=== PATIENT | female | born 1955 | race Caucasian/White ===

== ENCOUNTER → 2019-11-13 15:08 | Outpatient (CLI) | payer OTHER, SELFPAY ==
--- NOTE | ~2019-11-13 | MR_ITS ---
EXAMINATION: MR thoracic spine wo con EXAM DATE: 11/13/2019 16:19 INDICATION: Chronic upper back pain. TECHNIQUE: Multi-sequential, multiplanar MR images of the thoracic spine were obtained without contra st. Sagittal T1, T2, T2 fat saturation, axial T2 weighted images reviewed. There is no prior study for comparison. FINDINGS: There is mild to moderate diffuse mid and lower thoracic disc disease, with small disc bulg es and protrusions, small endplate osteophytes, small Schmorl's nodes. Midthoracic kyphosis. There ar e no suspicious marrow signal abnormalities. The spinal cord signal intensity and intrinsic morpholog y is normal. There is mild to moderate mid thoracic facet arthropathy, otherwise mild thoracic facet arthropathy. Central canal, neural foramen are patent. The vertebral bodies are aligned in the AP dim ension. Paraspinal soft tissue is unremarkable. There is moderate sliding gastroesophageal hiatal hernia. IMPRESSION: 1. Moderate-sized gastroesophageal hiatal hernia. 2. Mild to moderate thoracic spondylosis without stenosis. Reviewed, dictated and finalized at location A.
== END ==
PROVIDERS: Visit Provider Nurse Practitioner Family
DX: M54.6 Pain in thoracic spine (principal); K44.9 Diaphragmatic hernia without obstruction or gangrene; M47.814 Spondylosis without myelopathy or radiculopathy, thoracic region
CPT/HCPCS: 72146

== ENCOUNTER 2022-02-10 17:54 | Inpatient (IN) | payer MEDICARE, SELFPAY ==
[2022-02-10] VITALS (31 sets, daily range): BP systolic 111–198; BP diastolic 65–92; PULSE 101–120; RESP 17–30; TEMP 36.7–36.9; O2SAT 99–100; BMI 38.7
--- NOTE | ~2022-02-10 | CT_ITS ---
EXAMINATION: CT abdomen pelvis w con DATE: 02/10/2022 20:16 INDICATION: Gastrointestinal bleed TECHNIQUE: Computed tomography (CT) of the abdomen and pelvis was performed with 100 mL Omnipaque-350 intravenous contrast. Automated exposure control and iterative reconstruction technique were employe d. The dose-length product was 1431.94 mGy-cm. COMPARISON: None FINDINGS: Lung bases are clear. Large sliding-type hiatal hernia. Visualized inferior heart is normal. No peric ardial or pleural effusion. Bilateral breast implants. Liver, gallbladder, spleen, pancreas and bilat eral adrenal glands are normal. Small region of cortical scarring at the lower pole of the right kidn ey. Bilateral renal parapelvic cysts. Diffuse colonic wall thickening which at the proximal colon dem onstrates fat attenuation likely related to body habitus but with more edematous appearance in the mi d to distal colon which is more concerning for colitis. Small bowel and appendix are normal. Bladder, anteverted uterus and right adnexa are normal. 1.6 similar left ovarian cyst/follicle. No abscess or free intraperitoneal gas or fluid. No pathologically enlarged abdominal or pelvic lymphadenopathy. M oderate lower thoracic spondylosis with chronic appearing mild anterior wedging at T10 and T11. IMPRESSION: 1. Colitis which could be infectious, inflammatory or less likely ischemic in etiology. 2. Large sliding-type hiatal hernia. Reviewed, dictated and finalized at location A. IMPRESSION: 1. Colitis which could be infectious, inflammatory or less likely ischemic in e tiology. 2. Large sliding-type hiatal hernia.
[2022-02-10 18:27] LABS: Basophils Absolute Auto 0.1 K/mm3 (0.0-0.1); Basophils Percent Auto 0.5 % (0.2-1.2); Hematocrit 39.3 % (37.0-47.0); Hemoglobin 12.9 g/dL (12.0-15.0); Immature Granulocyte Absolute 0.03 K/mm3 (0.00-0.031); Immature Granulocyte Percent A 0.3 % (0-0.5); Lymphocytes Absolute Auto 1.33 K/mm3 (0.9-3.2); Lymphocytes Percent Auto 14.1 % (18.3-44.2); Mean Corpuscular HGB Conc 32.8 g/dl (32-36); Mean Corpuscular Hemoglobin 30.1 pg (26-34); Mean Corpuscular Volume 91.8 fl (80-100); Mean Platelet Volume 9.7 fl (7.4-10.4); Monocytes Absolute Auto 0.5 K/mm3 (0.1-0.6); Monocytes Percent Auto 4.8 % (2.6-8.5); Neutrophils Absolute Auto 7.6 K/mm3 (1.3-6.7); Neutrophils Percent Auto 80.3 % (45.5-73.1); Platelet Count Result 272 k/mm3 (150-375); Red Blood Count 4.28 M/mm3 (4.2-5.4); White Blood Count 9.4 K/mm3 (4.5-10.0)
[2022-02-10 18:38] LABS: INR 1.1; Prothrombin Time 13.3 Seconds (11.1-14.7)
[2022-02-10 18:39] LABS: Alanine Aminotransferase 24 U/L (6-35); Albumin Level 4.3 g/dL (3.5-5.1); Alkaline Phosphatase 70 U/L (38-126); Anion Gap 11 mmol/L (8-16); Aspartate Amino Transferase 23 U/L (14-36); Bilirubin,Total 0.7 mg/dL (0.2-1.3); Blood Urea Nitrogen 47 mg/dL (7-17); Calcium 8.8 mg/dL (8.4-10.2); Carbon Dioxide 16 mmol/L (22-30); Chloride 110 mmol/L (98-107); Estimated CRCL calculation 103 ml/min; Estimated Glomerular Filt Rate > 60; Glucose 219 mg/dL (65-110); Potassium 4.2 mmol/L (3.4-5.0); Sodium 137 mmol/L (137-145)
--- NOTE | 2022-02-10 19:15 | PC.NURSE ---
Report received from BOUCHRA Roach. Assumed care of patient at this time.
--- NOTE | 2022-02-10 19:42 | ED.GENADULT ---
HPI - General Adult General Chief complaint: GI Bleed Stated complaint: Multiple Complaints, Black Stools Time Seen by Provider: 02/10/22 19:03 History of Present Illness HPI narrative: This is a 66-year-old female presenting to ED with 1 day of diarrhea and black stools. Patient said that she had [place] food for dinner last night. After that she was not feeling well throughout the entire night with diffuse abdominal pain, that is nonradiating, 3/10 in intensity constant. She has never experienced pain like this before there were no exacerbating or alleviating factors. It is associated with multiple episodes of dark tarry stools that are foul smelling. She also describes some nausea and chills. The patient is tachypneic at rest and has dyspnea with exertion. She denies vomiting, chest pain, urinary symptoms, use of blood thinners, use of NSAIDs or history of GI bleed Related Data Home Medications Medication Instructions Recorded Confirmed aspirin 81 mg tablet,delayed 81 mg PO DAILY 10/02/19 10/09/21 release (Adult Aspirin Regimen) esomeprazole magnesium 20 mg 20 mg PO DAILY 10/05/19 10/09/21 capsule,delayed release (Nexium) Allergies Allergy/AdvReac Type Severity Reaction Status Date / Time diclofenac Allergy Severe Anaphylactic Verified 02/10/22 19:42 Shock Review of Systems Review of Systems: CONSTITUTIONAL: Denies night sweats. EYES: No eye pain ENT: Denies rhinorrhea CARDIOVASCULAR: Denies palpitations RESPIRATORY: Denies hemoptysis GASTROINTESTINAL: admits melena GENITOURINARY: Denies hematuria. SKIN: Denies rash MUSCULOSKELETAL: Denies myalgia. NEUROLOGIC: Denies weakness. PSYCHIATRIC: Denies delusions [facility] Past Medical History Medical History (Updated 02/10/22 @ 22:23 by Behzad Shah MD) Chronic back pain Depression Surgical History Surgical History (Updated 02/10/22 @ 19:47 by Behzad Shah MD) H/O section History of bunionectomy Family History Family History Mother Cerebrovascular accident Family history of diabetes mellitus in first degree relative, Onset Age: 79 Sibling Family history of diabetes mellitus in first degree relative Family history of renal failure Patient's brother is Patient's sister is in good health Father Acute myocardial infarction, Onset Age: 62 Social History Social History Smoking status: Never smoker Second hand tobacco smoke exposure: No Alcohol intake: never Exam Narrative: APPEARANCE: patient is lying in bed and she appears uncomfortable, she is tachypneic at rest Head atraumatic. EYES: PERRLA/EOMI, NOSE: Normal no drainage NECK: Supple, Trachea midline RESPIRATORY: CTAB, No increased work of breathing. CARDIOVASCULAR: S1S2 appreciated ABDOMINAL: tenderness to palpation in the epigastric area, no guarding or rebound, soft. Digital rectal exam revealed melanotic stools with a grossly positive Hemoccult. MUSCULOSKELETAl: No obvious deformities NEURO: Alert. Moving 4/4 extremities SKIN:: Warm, dry. Normal color PSYCHIATRIC: Normal affect Course Vital Signs Vital signs: Vital Signs Pulse Rate 109 H 02/10/22 17:55 Respiratory Rate 20 02/10/22 17:55 Blood Pressure 142/77 H 02/10/22 17:55 Pulse Oximetry 99 02/10/22 17:55 Temperature 98.1 F 02/10/22 20:02 Pulse Rate 112 H 02/10/22 20:02 Respiratory Rate 21 H 02/10/22 20:02 Blood Pressure 111/92 H 02/10/22 20:02 Pulse Oximetry 100 02/10/22 20:00 Medical Decision Making [facility] Narrative Medical decision making narrative: This is a 66-year-old female presenting the ED with melanotic stools. She is tachycardic, and has dyspnea with exertion w/ could be due to symptomatic anemia vs dehydration. Am concerned for an upper GI bleed. Abdominal lab work, type and screen and a CT abdom
[2022-02-10] MEDS: SODIUM CHLORIDE 0.9% IV 2,000 ML 999 ML IV CONT (19:59)
[2022-02-10] MEDS: PANTOPRAZOLE SODIUM IV 40 MG VIAL 80 MG IV PUSH (20:00)
--- NOTE | 2022-02-10 20:07 | PC.NURSE ---
Patient taken to CT via stretcher.
[2022-02-10 21:51] LABS: Influenza A QL RT-PCR Negative (Negative); Influenza B QL RT-PCR Negative (Negative); SARS-CoV-2 RNA PCR Negative
--- NOTE | 2022-02-10 22:14 | PM.IMHP ---
H&P: HPI History of Present Illness Date/Time: 02/10/22 22:14 Chief Complaint: melena Narrative: This is a 66-year-old female with past medical history significant for hypertension, dyslipidemia, gastroesophageal reflux disease, chronic back pain, patient presents to the emergency room due to 1 day duration of initially diarrhea and then became melena had too numerous to count episodes. Patient also complaints of epigastric pain patient denies hematemesis, coffee-ground emesis, or bright red blood per rectum, denies any unintentional weight loss, any changes in her stool character. Patient has been in her usual state of health up until today she denies use of any [id number] medications like NSAID or aspirin, denies dyspepsia. in emergency room patient was found to be tachycardic with heart rate in the 120s Preliminary workup has been significant for CT of abdomen and pelvis was reported as; IMPRESSION: 1. Colitis which could be infectious, inflammatory or less likely ischemic in etiology. 2. Large sliding-type hiatal hernia. Review of Systems Review of Systems: diarrhea, melena Constitutional: Constitutional: Denies chills, Denies fever(s), Denies malaise, Denies night sweats and Denies weakness Eyes: Eyes: Denies change in vision ENT: Denies dysphagia, Denies vertigo, Denies dizziness and Denies odynophagia Cardiovascular: Cardiovascular: Denies chest pain, Denies syncope, Denies irregular heart rhythm, Denies lightheadedness and Denies palpitations Respiratory: Respiratory: Denies chest congestion, Denies cough, Denies excessive phlegm production, Denies pain on inspiration and Denies dyspnea on exertion Gastrointestinal: Gastrointestinal: Denies abdominal pain, Reports melena, Denies hematochezia, Denies coffee ground emesis, Denies dyspepsia, Denies heartburn, Reports diarrhea, Denies nausea and Denies vomiting Genitourinary: Genitourinary: Denies dysuria Musculoskeletal: Musculoskeletal: Reports back pain and Denies myalgias Integumentary/Breasts: Skin/Breast: Denies rash Neurologic: Denies vertigo, Denies dizziness, Denies focal weakness and Denies Sensory deficit (Neuro) Psychiatric: Psychiatric: Reports no additional psychiatric complaints and Reports as per HPI Endocrine: Endocrine: Denies cold intolerance, Denies flushing, Denies heat intolerance, Denies polyphagia, Denies polydipsia and Denies palpitations Hematologic/Lymphatic: Hematologic/Lymphatic: Reports no additional hematologic/lymphatic complaints and Reports as per HPI Allergic/Immunologic: Allergic/Immunologic: Reports no additional allergic/immunologic complaints and Reports as per HPI [facility] Past Medical History Medical History (Updated 02/10/22 @ 22:23 by Behzad Shah MD) Chronic back pain Depression Surgical History Surgical History (Updated 02/10/22 @ 19:47 by Behzad Shah MD) H/O section History of bunionectomy Family History Family History Mother Cerebrovascular accident Family history of diabetes mellitus in first degree relative, Onset Age: 79 Sibling Family history of diabetes mellitus in first degree relative Family history of renal failure Patient's brother is Patient's sister is in good health Father Acute myocardial infarction, Onset Age: 62 Social History Social History Smoking status: Never smoker Second hand tobacco smoke exposure: No Alcohol intake: never Meds Home Medications and Allergies Home Medications Medication Instructions Recorded Confirmed Type aspirin 81 mg tablet,delayed 81 mg PO DAILY 10/02/19 10/09/21 History release (Adult Aspirin Regimen) esomeprazole magnesium 20 mg 20 mg PO DAILY 10/05/19 10/09/21 History capsule,delayed release (Nexium) sertraline 100 mg tablet 100 mg PO DAILY #90 tabs 02/26/21
--- NOTE | 2022-02-10 22:48 | PC.NURSE ---
Hospitalist in room with patient at this time.
--- OUTSIDE RECORDS SUMMARY | 2022-02-10 23:33 | XMS_ITS ---
:1955 Author Care Team Providers Name Role Phone DR. CATA FREGOSO Primary Care Provider [phone] DR. CATA FREGOSO Referring Provider [phone] Allergies Code Code System Name Reaction Severity Status Onset 20281025 RxNorm Voltaren Itching ? Active ? Medications Name Status Start Date Stop Date ? ? Afluria Qd 2018- (36 mos up)(PF)60 mcg (15 mcg x4)/0.5 mL IM s yringe Active ? Not available ADM 0.5ML IM UTD alprazolam 0.5 mg tablet Active ? Not steve ilable clobetasol 0.05 % topical ointment Active ? Not available clotrimazole-betamethasone 1 %-0.05 % topical cream Active ? Not available ferrous sulfate 325 mg (65 mg iron) tablet Active ? Not available TK 1 T PO D fluticasone propionate 50 mcg/actuation nasal Active ? Not available spray,suspension hydrocodone 5 mg-acetaminophen 325 mg tablet Active ? Not available TK 1 T PO BID PRN FOR PAIN lansoprazole 30 mg capsule,delayed release Active ? Not available losartan 100 mg tablet Active ? Not avail able omeprazole 20 mg capsule,delayed release Active ? Not available TK 1 C PO D sertraline 100 mg tablet Active ? Not steve ilable sulfamethoxazole 800 mg-trimethoprim 160 mg tablet Active ? Not available Suprep Bowel Prep Kit 17.5 gram-3.13 gram-1.6 gram oral Active ? Not available solution Virtussin AC 10 mg-100 mg/5 mL oral liquid Active ? Not available Problems None recorded. Procedures Date Name Performed by ? ? Breast Surgery Information not linda shannon Notes: bilat mastectomy & implants 02/19/2016 XR, Shoulder, 2 or More View In-House Re fiorella
--- OUTSIDE RECORDS SUMMARY | 2022-02-10 23:33 | XMS_ITS ---
:1955 Author Care Team Providers Name Role Phone DR. CATA FREGOSO Primary Care Provider [phone] DR. CATA FREGOSO Referring Provider [phone] Allergies Code Code System Name Reaction Severity Status Onset NKDA ? Medications Name Status Start Date Stop Date ? ? Afluria Qd 2018- (36 mos up)(PF)60 mcg (15 mcg x4)/0 .5 mL IM syringe Completed ? 06/11/2019 ADM 0.5ML IM UTD alprazolam 0.5 mg tablet Completed ? 020 clobetasol 0.05 % topical ointment Completed ? 06/10/2019 clotrimazole-betamethasone 1 %-0.05 % topical cream Completed ? 06/10/2019 ferrous sulfate 325 mg (65 mg iron) tablet Active ? Not available TK 1 T PO D fluticasone propionate 50 mcg/actuation nasal Completed ? 06/10/2019 spray,suspension hydrocodone 5 mg-acetaminophen 325 mg tablet Active ? Not available TK 1 T PO BID PRN FOR PAIN Kenalog 10 mg/mL suspension for injection Active ? Not available In office injection administered by the provider lansoprazole 30 mg capsule,delayed release Completed ? 06/10/2019 lidocaine (PF) 10 mg/mL (1 %) injection solution Active ? Not available In office injection administered by the provider losartan 100 mg tablet Active ? Not avail able omeprazole 20 mg capsule,delayed release Active ? Not available TK 1 C PO D sertraline 100 mg tablet Active ? Not steve ilable sulfamethoxazole 800 mg-trimethoprim 160 mg tablet Completed ? 06/11/2019 Suprep Bowel Prep Kit 17.5 gram-3.13 gram-1.6 gram oral Complete d ? 06/10/2019 solution Virtussin AC 10 mg-100 mg/5 mL oral liquid Completed ?
--- OUTSIDE RECORDS SUMMARY | 2022-02-10 23:33 | XMS_ITS ---
:1955 Author Care Team Providers Name Role Phone DR. CATA FREGOSO Primary Care Provider [phone] DR. CATA FREGOSO Referring Provider [phone] Allergies Code Code System Name Reaction Severity Status Onset 20281025 RxNorm Voltaren ? ? Active ? Medications Name Status Start Date Stop Date ? ? Afluria Qd 2018- (36 mos up)(PF)60 mcg (15 mcg x4)/0 .5 mL IM syringe Completed ? 06/11/2019 ADM 0.5ML IM UTD alprazolam 0.5 mg tablet Completed ? 020 amoxicillin 875 mg-potassium clavulanate 125 mg tablet Completed ? 08/08/2021 TAKE 1 TABLET BY MOUTH TWICE DAILY bupivacaine HCl 0.5 % (5 mg/mL) injection solution Active ? Not available Take 40 mg by injection route. clobetasol 0.05 % topical ointment Completed ? 06/10/2019 clotrimazole-betamethasone 1 %-0.05 % topical cream Completed ? 06/10/2019 ferrous sulfate 325 mg (65 mg iron) tablet Completed ? 06/10/2019 TK 1 T PO BID fluticasone propionate 50 mcg/actuation nasal Completed ? 06/10/2019 spray,suspension hydrocodone 5 mg-acetaminophen 325 mg tablet Active ? Not available TAKE 1 TABLET BY MOUTH TWICE DAILY NEEDED ID NOW COVID-19 Test Kit Completed ? 022 TEST DIRECTED TODAY Kenalog 10 mg/mL suspension for injection Active ? Not available In office injection administered by the provider lansoprazole 30 mg capsule,delayed release Completed ? 06/10/2019 lidocaine (PF) 10 mg/mL (1 %) injection solution Active ? Not available In office injection administered by the provider losartan 100 mg tablet Active ? Not avail able TAKE 1 TABLET BY MOUTH DAILY
--- NOTE | 2022-02-10 23:40 | ADMGEN ---
This patient, Naheed Tian, was admitted to Medical Room 349-01. Patient/family oriented to hospital policies and general routines including ID bracelet, bed and alarms, visiting hours, pain management, procedures, bathroom and other care routines, personal items, smoking policy, room service/diet, and visiting hours. Information on how to activate the Rapid Response Team has been discussed. Patient/Family are encouraged to report perceived risks to care and to ask questions if they do not understand what they are told or what they should do.
[2022-02-11] VITALS (11 sets, daily range): BP systolic 128–162; BP diastolic 82–85; PULSE 80–110; RESP 16–20; TEMP 36.7–37.3; O2SAT 96–100
[2022-02-11] MEDS: DEXTROSE 5%/0.45% SOD CHL 1,000 ML 100 ML IV CONT ×2 (00:50→11:23)
[2022-02-11] MEDS: LOSARTAN POTASSIUM 100 MG TABLET PO (10:02)
[2022-02-11] MEDS: SERTRALINE HCL 50 MG TABLET 100 MG PO (10:02)
[2022-02-11] MEDS: ATORVASTATIN 20 MG TABLET PO (10:02)
--- NOTE | 2022-02-11 11:27 | PM.IMPN ---
Progress Note: A&P Assessment and Plan (1) Acute upper gastrointestinal bleeding: Code(s): K92.2 - Gastrointestinal hemorrhage, unspecified Status: Acute Assessment and Plan: admit to med tele NPO bed rest transfuse as needed started on pantoprazole drip IV fluids recheck H and H in 6 hours GI consult (2) Essential (primary) hypertension: Code(s): I10 - Essential (primary) hypertension Status: Acute Assessment and Plan: uncontrolled hypertension hydralazine p.r.n. (3) Obesity, Class III, BMI 40-49.9 (morbid obesity): Code(s): E66.01 - Morbid (severe) obesity due to excess calories Status: Acute Assessment and Plan: lifestyle and diet modifications (4) Gastro-esophageal reflux disease without esophagitis: Code(s): K21.9 - Gastro-esophageal reflux disease without esophagitis Status: Acute Assessment and Plan: currently on pantoprazole drip (5) Chronic back pain: Code(s): M54.9 - Dorsalgia, unspecified; G89.29 - Other chronic pain Status: Acute Assessment and Plan: Tylenol as needed Subjective Date/time seen: 02/11/22 11:27 no active bleeding this morning. Exam Const: General: comfortable, no acute distress, well developed, alert, awake, average body habitus and overweight Nutritional Appearance: average body habitus and overweight Orientation/consciousness: patient oriented x3 HENMT: Head: normal to inspection, normocephalic and atraumatic Ears: hearing grossly normal bilaterally Face/Nose/Sinus: normal facial exam Face and sinus: normal facial exam Eyes: General: appearance normal, both eyes and all related structures Pupils: Equal, round and reactive pupils present EOM: EOMs intact bilaterally Neck: Neck: full ROM, no lymphadenopathy and no JVD Thyroid: thyroid normal Lymphatic: no lymphadenopathy noted Resp: Effort & Inspection: normal respiratory effort and able to speak in complete sentences Auscultation: clear to auscultation bilaterally Cardio: Jugular venous distension: no JVD Rate: regular rate Rhythm: regular rhythm Heart sounds: S1 normal heart sound present and S2 normal heart sound present : General: Yes deferred Skin: Rashes: no rashes Wounds: no wounds Neuro: General: patient oriented x3 and CN's II-XI intact bilaterally Cranial nerves: Yes CN's II-XII intact bilaterally and Yes Equal, round and reactive pupils present Cognition (Neuro): normal cognition Speech: normal speech Gait exam (Neuro): Normal gait present Motor exam (neuro): 5/5 motor strength present throughout Sensory Exam: No Sensory deficit (Neuro) Extrem: General: normal to inspection, full ROM, no joint enlargement and no pedal edema Objective Data Vital Signs Vital Signs: Vital Signs - 24 hr 02/10/22 17:55 02/10/22 19:42 02/10/22 19:43 Temperature Pulse Rate 109 H 112 H 110 H Respiratory Rate 20 24 H 24 H Blood Pressure 142/77 H 171/70 H Pulse Oximetry 99 100 100 Oxygen Delivery 02/10/22 19:45 02/10/22 20:00 02/10/22 20:02 Temperature 98.1 F Pulse Rate 107 H 105 H 112 H Respiratory Rate 22 H 23 H 21 H Blood Pressure 111/92 H Pulse Oximetry 100 100 Oxygen Delivery 02/10/22 20:03 02/10/22 20:18 02/10/22 20:20 Temperature Pulse Rate 107 H 113 H 107 H Respiratory Rate 26 H 22 H 19 Blood Pressure Pulse Oximetry 100 100 Oxygen Delivery 02/10/22 20:31 02/10/22 20:32 02/10/22 20:44 Temperature Pulse Rate 108 H 109 H 120 H Respiratory Rate 20 19 20 Blood Pressure 179/88 H 184/90 H Pulse Oximetry 100 100 Oxygen Delivery 02/10/22 20:45 02/10/22 21:00 02/10/22 21:02 Temperature Pulse Rate 118 H 110 H 108 H Respiratory Rate 30 H 25 H 22 H Blood Pressure 198/78 H Pulse Oximetry 100 100 100 Oxygen Delivery 02/10/22 21:15 02/10/22 21:30 02/10/22 21:32 Temperature Pulse Rate 108 H 101 H 102 H Respiratory Rate 23 H 20 20 Blood
[2022-02-11 13:35] LABS: Toxigenic C. Diff NEGATIVE (NEGATIVE)
[2022-02-11] MEDS: AMPICILLIN SULB 3 GM/NS 100 ML 3 GM/100 ML VIAL IVPB ×3 (15:08→23:59)
[2022-02-11] MEDS: HYDROcodone/acetaminophen (*CRX) 5-325 MG TABLET 1 TAB PO (22:11)
[2022-02-12] VITALS (13 sets, daily range): BP systolic 138–156; BP diastolic 51–90; PULSE 80–98; RESP 16–24; TEMP 36.2–36.8; O2SAT 96–100
[2022-02-12] MEDS: DEXTROSE 5%/0.45% SOD CHL 1,000 ML 100 ML IV CONT ×2 (03:38→21:35)
[2022-02-12] MEDS: AMPICILLIN SULB 3 GM/NS 100 ML 3 GM/100 ML VIAL IVPB ×4 (06:45→23:48)
[2022-02-12] MEDS: SERTRALINE HCL 50 MG TABLET 100 MG PO (09:26)
[2022-02-12] MEDS: ATORVASTATIN 20 MG TABLET PO (09:26)
[2022-02-12] MEDS: LOSARTAN POTASSIUM 100 MG TABLET PO (09:26)
--- NOTE | 2022-02-12 09:59 | WPDGICN ---
Assessment and Plan Assessment and plan (1) Acute upper gastrointestinal bleeding: Code(s): K92.2 - Gastrointestinal hemorrhage, unspecified Status: Acute Assessment and Plan: the melena the that began 2 days ago as well as the marked elevation of her BUN suggest upper gastrointestinal bleeding. This would also explain her weakness and tachycardia on admission. Her hemoglobin today is down to 8.8. Plan: EGD with possible biopsy or dilatation or cautery. (2) Azotemia: Code(s): R79.89 - Other specified abnormal findings of blood chemistry Status: Acute Assessment and Plan: this suggests upper gastrointestinal bleeding. Hemoglobin is 8.8 the plan is to continue to observe her blood counts, schedule EGD today, transfuse if necessary. (3) Acute dehydration: Code(s): E86.0 - Dehydration Status: Acute Assessment and Plan: likely due to blood loss. She no longer has tachycardia (4) Colitis: Code(s): K52.9 - Noninfective gastroenteritis and colitis, unspecified Status: Acute Assessment and Plan: CT finding which is probably not significant given the lack of symptoms. If upper gastrointestinal pathology not seen, then we would need to consider a colonoscopy. (5) Gastro-esophageal reflux disease without esophagitis: Code(s): K21.9 - Gastro-esophageal reflux disease without esophagitis Status: Acute Assessment and Plan: She denies dysphagia. She takes Nexium which controls her heartburn symptoms. GI Consult Note Consult date/time: 02/12/22 09:59 HPI: Naheed Tian is a 66 year old female Who presented to the emergency room the night before last with 1 day of diarrhea and black stools.? Patient said that she had [place] food for dinner The other night.? After that she was not feeling well throughout the entire night with diffuse abdominal pain, that is nonradiating, 3/10 in intensity constant.? the pain felt like of fullness that would be relieved by having a bowel movement. Then early starting morning she began having many many bowel movements all of which were black. Gradually the pain seemed to subside. She has never experienced pain like this before there were no exacerbating or alleviating factors.? It is associated with multiple episodes of dark tarry stools that are foul smelling.? She also describes some nausea and chills.?? she has been found to have a significant elevation of BUN suggesting upper gastrointestinal bleed. CT scan shows evidence of colitis. She has not however had any recent change in bowel habits. She does not see blood her stools. Her last colonoscopy, done 4 years ago, was unremarkable. Review of Systems Review of Systems: All systems reviewed & are unremarkable except as noted in HPI and below PMFSH Past Medical History Medical History Chronic back pain Depression Surgical History Surgical History H/O section History of bunionectomy Family History Family History Mother Cerebrovascular accident Family history of diabetes mellitus in first degree relative, Onset Age: 79 Sibling Family history of diabetes mellitus in first degree relative Family history of renal failure Patient's brother is Patient's sister is in good health Father Acute myocardial infarction, Onset Age: 62 Social History Social History Smoking status: Never smoker Second hand tobacco smoke exposure: No Alcohol intake: current Drinks per week: 1 Substance use: never Spiritual care concerns: No Has the Lack of Transportation Kept You From Medical Appointments or From Getting Medications?: No Within the Past 12 Months, Were You Worried Whether Your Food
[2022-02-12 10:10] LABS: Hemoglobin 8.8 g/dL (12.0-15.0); Mean Corpuscular HGB Conc 32.6 g/dl (32-36); Mean Corpuscular Hemoglobin 30.1 pg (26-34); Mean Corpuscular Volume 92.5 fl (80-100); Mean Platelet Volume 9.6 fl (7.4-10.4); Platelet Count Result 176 k/mm3 (150-375); Red Blood Count 2.92 M/mm3 (4.2-5.4); Red Cell Distribution Width 13.2 % (11.5-14.5); White Blood Count 5.7 K/mm3 (4.5-10.0)
--- NOTE | 2022-02-12 11:56 | PM.IMPN ---
Progress Note: A&P Assessment and Plan (1) Acute upper gastrointestinal bleeding: Code(s): K92.2 - Gastrointestinal hemorrhage, unspecified Status: Acute Assessment and Plan: admit to med tele NPO bed rest transfuse as needed started on pantoprazole drip IV fluids recheck H and H in 6 hours GI consult (2) Essential (primary) hypertension: Code(s): I10 - Essential (primary) hypertension Status: Acute Assessment and Plan: uncontrolled hypertension hydralazine p.r.n. (3) Obesity, Class III, BMI 40-49.9 (morbid obesity): Code(s): E66.01 - Morbid (severe) obesity due to excess calories Status: Acute Assessment and Plan: lifestyle and diet modifications (4) Gastro-esophageal reflux disease without esophagitis: Code(s): K21.9 - Gastro-esophageal reflux disease without esophagitis Status: Acute Assessment and Plan: currently on pantoprazole drip (5) Chronic back pain: Code(s): M54.9 - Dorsalgia, unspecified; G89.29 - Other chronic pain Status: Acute Assessment and Plan: Tylenol as needed Subjective Date/time seen: 02/12/22 11:56 no acute issues Exam Narrative: patient is laying in a stretcher Const: General: comfortable, no acute distress, well developed, alert, awake, average body habitus and overweight Nutritional Appearance: average body habitus and overweight Orientation/consciousness: patient oriented x3 HENMT: Head: normal to inspection, normocephalic and atraumatic Ears: hearing grossly normal bilaterally Face/Nose/Sinus: normal facial exam Face and sinus: normal facial exam Eyes: General: appearance normal, both eyes and all related structures Pupils: Equal, round and reactive pupils present EOM: EOMs intact bilaterally Neck: Neck: full ROM, no lymphadenopathy and no JVD Thyroid: thyroid normal Lymphatic: no lymphadenopathy noted Resp: Effort & Inspection: normal respiratory effort and able to speak in complete sentences Auscultation: clear to auscultation bilaterally Cardio: Jugular venous distension: no JVD Rate: regular rate Rhythm: regular rhythm Heart sounds: S1 normal heart sound present and S2 normal heart sound present : General: Yes deferred Skin: Rashes: no rashes Wounds: no wounds Neuro: General: patient oriented x3 and CN's II-XI intact bilaterally Cranial nerves: Yes CN's II-XII intact bilaterally and Yes Equal, round and reactive pupils present Cognition (Neuro): normal cognition Speech: normal speech Gait exam (Neuro): Normal gait present Motor exam (neuro): 5/5 motor strength present throughout Sensory Exam: No Sensory deficit (Neuro) Extrem: General: normal to inspection, full ROM, no joint enlargement and no pedal edema Objective Data Vital Signs Vital Signs: Vital Signs - 24 hr 02/11/22 14:07 02/11/22 16:11 02/11/22 12:00 Temperature 98.6 F Pulse Rate 91 86 Respiratory Rate 16 Blood Pressure 128/85 Pulse Oximetry 96 100 Oxygen Delivery Room Air 02/11/22 16:00 02/11/22 21:15 02/11/22 20:45 Temperature 98.1 F Pulse Rate 88 80 Respiratory Rate 16 Blood Pressure 132/82 Pulse Oximetry 100 Oxygen Delivery Room Air 02/11/22 20:00 02/12/22 00:00 02/12/22 04:00 Temperature Pulse Rate 91 91 88 Respiratory Rate Blood Pressure Pulse Oximetry Oxygen Delivery 02/12/22 06:00 Temperature 98.2 F Pulse Rate 80 Respiratory Rate 16 Blood Pressure 138/80 Pulse Oximetry 96 Oxygen Delivery Intake/Output Intake/Output: Intake & Output 02/09/22 02/10/22 02/11/22 02/12/22 23:59 23:59 23:59 23:59 Intake Total 1999 3400 200 Output Total 700 Balance 1999 3400 -500 Meds/Results Medications: Active Medications Generic Name Dose Route Start Last Admin Trade Name Freq PRN Reason Stop Dose Admin Hydrocodone Bitart/Acetaminophen 1 tab 02/11/22 08:35 02/11/22 22:11 Hydrocodone/Acetaminophe
--- NOTE | 2022-02-12 14:51 | WPDANESEPPF ---
Anes - Initial Pre Proc Eval Procedure: Operation Date: 02/12/22 17:15 Proposed Procedures p Esophagogastroduodenoscopy EGD - Juan F Carney MD Date/Time: 02/12/22 14:51 Surgeon: Janina Bowles MD Pre Op Diagnosis: UGIB Patient Data Age: 66 Gender: F Height: 1.7 m Weight: 112.2 kg Last Vital Signs Temp 98.2 F 02/12/22 06:00 Pulse 80 02/12/22 06:00 Resp 16 02/12/22 06:00 BP 138/80 02/12/22 06:00 Pulse Ox 96 02/12/22 06:00 O2 Del Method Room Air 02/11/22 20:45 Allergies Allergy/AdvReac Type Severity Reaction Status Date / Time diclofenac Allergy Severe Anaphylactic Verified 02/10/22 23:48 Shock Home Medications Medication Instructions Recorded Confirmed Type aspirin 81 mg tablet,delayed 81 mg PO DAILY 10/02/19 02/11/22 History release (Adult Aspirin Regimen) esomeprazole magnesium 20 mg 20 mg PO DAILY 10/05/19 02/11/22 History capsule,delayed release (Nexium) sertraline 100 mg tablet 100 mg PO DAILY #90 tabs 02/26/21 02/11/22 Rx losartan 100 mg tablet 100 mg PO DAILY #90 tabs 10/06/21 02/11/22 Rx atorvastatin 20 mg tablet 20 mg PO DAILY #90 tabs 10/24/21 02/11/22 Rx hydrocodone 5 mg-acetaminophen 325 1 tablet PO BID PRN pain #60 tabs 01/22/22 02/11/22 Rx mg tablet acetaminophen 500 mg capsule 500 mg PO Q6H PRN Pain 02/11/22 02/11/22 History Laboratory Tests 02/12/22 09:46 WBC 5.7 K/mm3 K/mm3 (4.5-10.0) RBC 2.92 M/mm3 L M/mm3 (4.2-5.4) Hgb 8.8 g/dL L D g/dL (12.0-15.0) Hct 27.0 % L % (37.0-47.0) MCV 92.5 fl fl (80-100) MCH 30.1 pg pg (26-34) MCHC 32.6 g/dl g/dl (32-36) RDW 13.2 % % (11.5-14.5) Plt Count 176 k/mm3 k/mm3 (150-375) MPV 9.6 fl fl (7.4-10.4) Immature Gran % (Auto) Not Reportable Neut % (Auto) Not Reportable Lymph % (Auto) Not Reportable [place] % (Auto) Not Reportable Eos % (Auto) Not Reportable Baso % (Auto) Not Reportable Lymph # (Auto) Not Reportable [place] # (Auto) Not Reportable Eos # (Auto) Not Reportable Baso # (Auto) Not Reportable Abs Immat Gran (auto) Not Reportable Absolute Neuts (auto) Not Reportable Absolute Nucleated RBC Not Reportable Nucleated RBC % Not Reportable Patient hx anesthesia problems: none Family hx anesthesia problems: none Results Review: All pre-operative results and documents have been reviewed as part of the pre-operative evaluation. [facility] Past Medical History Medical History Chronic back pain Depression Surgical History Surgical History H/O section History of bunionectomy Family History Family History Mother Cerebrovascular accident Family history of diabetes mellitus in first degree relative, Onset Age: 79 Sibling Family history of diabetes mellitus in first degree relative Family history of renal failure Patient's brother is Patient's sister is in good health Father Acute myocardial infarction, Onset Age: 62 Social History Social History Smoking status: Never smoker Second hand tobacco smoke exposure: No Alcohol intake: current Drinks per week: 1 Substance use: never Spiritual care concerns: No Has the Lack of Transportation Kept You From Medical Appointments or From Getting Medications?: No Within the Past 12 Months, Were You Worried Whether Your Food Would Run Out Before You Got Money to Buy More?: Never True What is Your Housing Situation Today?: I Have Housing Are You Worried That in the Next 2 Months, You May Not Have Your Own Housing to Live In?: No Do You Have Trouble Paying Your Heating Or Electricity Bill?: No Do You Have Trouble Paying For Medicines?: No
[2022-02-12] MEDS: LACTATED RINGERS 1,000 ML 150 ML IV CONT (14:52)
[2022-02-12] MEDS: polyethylene glycoL 3350 238 GM BOTTLE PO (18:51)
[2022-02-12] MEDS: HYDROcodone/acetaminophen (*CRX) 5-325 MG TABLET 1 TAB PO (20:36)
[2022-02-13] VITALS (8 sets, daily range): BP systolic 115–150; BP diastolic 42–75; PULSE 72–96; RESP 16–20; TEMP 36.6; O2SAT 100
[2022-02-13] MEDS: AMPICILLIN SULB 3 GM/NS 100 ML 3 GM/100 ML VIAL IVPB (05:27)
[2022-02-13] MEDS: DEXTROSE 5%/0.45% SOD CHL 1,000 ML 100 ML IV CONT (08:18)
[2022-02-13] MEDS: ATORVASTATIN 20 MG TABLET PO (08:19)
[2022-02-13] MEDS: LOSARTAN POTASSIUM 100 MG TABLET PO (08:19)
[2022-02-13] MEDS: SERTRALINE HCL 50 MG TABLET 100 MG PO (08:19)
[2022-02-13 08:46] LABS: Hematocrit 24.9 % (37.0-47.0); Hemoglobin 8.3 g/dL (12.0-15.0)
--- NOTE | 2022-02-13 09:41 | P.PNAN_ITS ---
Anes - Eval Final PreProcedure Day of Procedure 02/13/22 09:41 Patient weight: obese Heart: regular rate and rhythm Lungs: clear to auscultation Airway: Mallampati scale class II Neurological: alert and oriented Last oral intake: >/= 8 hours ASA classification: IV Emergent: no Anesthetic plan: proceed Anesthesia type and monitoring: general GIVS and standard monitoring Results Review: All pre-operative results and documents have been reviewed as part of the pre- operative evaluation. Informed Consent: The patient's anesthetic plan and its attendant risks and benefits were discussed with the patient/family/POA. Questions were solicited and answers provided to the satisfaction of the patient/family/POA.
[2022-02-13] MEDS: LACTATED RINGERS 1,000 ML 150 ML IV CONT (09:49)
--- NOTE | 2022-02-13 11:22 | PM.DS ---
DS: Admitting Diagnosis Discharge Date February 13, 2022 Admitting Diagnosis GI bleed, anemia DS: Discharge Diagnosis Discharge Diagnosis (1) Acute upper gastrointestinal bleeding: Code(s): K92.2 - Gastrointestinal hemorrhage, unspecified Status: Acute Assessment and Plan: admit [facility] NPO bed rest transfuse as needed started on pantoprazole drip IV fluids recheck H and H in 6 hours GI consult (2) Essential (primary) hypertension: Code(s): I10 - Essential (primary) hypertension Status: Acute Assessment and Plan: uncontrolled hypertension hydralazine p.r.n. (3) Obesity, Class III, BMI 40-49.9 (morbid obesity): Code(s): E66.01 - Morbid (severe) obesity due to excess calories Status: Acute Assessment and Plan: lifestyle and diet modifications (4) Gastro-esophageal reflux disease without esophagitis: Code(s): K21.9 - Gastro-esophageal reflux disease without esophagitis Status: Acute Assessment and Plan: currently on pantoprazole drip (5) Chronic back pain: Code(s): M54.9 - Dorsalgia, unspecified; G89.29 - Other chronic pain Status: Acute Assessment and Plan: Tylenol as needed DS: Summary Hospital Course Hospital Course: patient is a 66-year-old female came in with dark black stools. GI was consulted she had upper endoscopy lower endoscopy. No bleeding was identified. She did have a drop her hemoglobin never required a blood transfusion for the last 24hours her hemoglobin has been stable and she has not had any dark black stools in the last 24hours. Nonetheless GI will follow up with the patient and may be arrange for capsule endoscopy that will be up to them. I did speak with GI Dr. Monet and he was okay with patient being discharged. Patient does not have any colitis on colonoscopy so antibiotics can be discontinued. Time Spent with Patient Time attestation: Total time spent providing and/or coordinating discharge services: Exam Const: General: comfortable, no acute distress, well developed, alert, awake, average body habitus and overweight Nutritional Appearance: average body habitus and overweight Orientation/consciousness: patient oriented x3 HENMT: Head: normal to inspection, normocephalic and atraumatic Ears: hearing grossly normal bilaterally Face/Nose/Sinus: normal facial exam Face and sinus: normal facial exam Eyes: General: appearance normal, both eyes and all related structures Pupils: Equal, round and reactive pupils present EOM: EOMs intact bilaterally Neck: Neck: full ROM, no lymphadenopathy and no JVD Thyroid: thyroid normal Lymphatic: no lymphadenopathy noted Resp: Effort & Inspection: normal respiratory effort and able to speak in complete sentences Auscultation: clear to auscultation bilaterally Cardio: Jugular venous distension: no JVD Rate: regular rate Rhythm: regular rhythm Heart sounds: S1 normal heart sound present and S2 normal heart sound present : General: Yes deferred Skin: Rashes: no rashes Wounds: no wounds Neuro: General: patient oriented x3 and CN's II-XI intact bilaterally Cranial nerves: Yes CN's II-XII intact bilaterally and Yes Equal, round and reactive pupils present Cognition (Neuro): normal cognition Speech: normal speech Gait exam (Neuro): Normal gait present Motor exam (neuro): 5/5 motor strength present throughout Sensory Exam: No Sensory deficit (Neuro) Extrem: General: normal to inspection, full ROM, no joint enlargement and no pedal edema DS: Data Data Completed and Pending Labs on day of discharge: Labs from last 24 hours 02/13/22 08:38 Hgb 8.3 L Hct 24.9 L Discharge Plan Discharge Attending physician on discharge: Ankit Bazan Consulting providers: Juan F Carney ; Jesus Verdugo Discharging Clinician: Ankit Bazan Patient Disposition: Home, Self-Care Activity: no preference
== END 2022-02-13 12:10 | disposition home or self-care (01) | DRG 379 ==
LOC: ANHED 22:33 → ANH3MED 02-11 02:05
PROVIDERS: Emergency Medicine; Internal Medicine Gastroenterology; Admitting Provider Internal Medicine; Emergency Provider Emergency Medicine; PCP Internal Medicine; Visit Provider Chiropractor
PROC: 0DJ08ZZ Inspection of Upper Intestinal Tract, Via Natural or Artificial Opening Endoscopic (ICD-10-PCS; CPT 43235; principal; 2022-02-12 17:15)
PROC: 0DJD8ZZ Inspection of Lower Intestinal Tract, Via Natural or Artificial Opening Endoscopic (ICD-10-PCS; CPT 45378; principal; 2022-02-13 15:15)
DX: K25.4 Chronic or unspecified gastric ulcer with hemorrhage (principal); E86.0 Dehydration; N19 Unspecified kidney failure; I10 Essential (primary) hypertension; E78.5 Hyperlipidemia, unspecified; E66.01 Morbid (severe) obesity due to excess calories; K44.9 Diaphragmatic hernia without obstruction or gangrene; K21.9 Gastro-esophageal reflux disease without esophagitis; K64.8 Other hemorrhoids; M54.9 Dorsalgia, unspecified; G89.29 Other chronic pain; F32.A Depression, unspecified; Z20.822 Contact with and (suspected) exposure to COVID-19; Z79.82 Long term (current) use of aspirin
CPT/HCPCS: 36415; 74177; 80053; 85014; 85018; 85025; 85610; 85730; 86850; 86900; 86901; 87045; 87081; 87269; 87272; 87427; 87493; 87502; 89055; 96361; 96374; 99285; A9270; C9113; C9803; G0378; J0131; J0295; J2704; J7030; J7060; J7120; Q9967; U0003; U0005

== ENCOUNTER 2022-04-10 15:35 | Outpatient (CLI) | payer MEDICARE, SELFPAY ==
[2022-04-10 15:53] LABS: Add Urine Microscopic? YES; Appearance Urine Slightly Cloudy (Clear); Bilirubin Urine Negative (Negative); Blood Urine Trace-Intact (Negative); Glucose Urine UA Negative (Negative); Ketones Urine Trace mg/dL (Negative); Leukocyte Esterase Ur 2+ LEU/UL (Negative); Nitrate Urine Positive (Negative); Protein Urine 2+ mg/dL (Negative); Specific Grav Ur >= 1.030 (1.001-1.035); Urobilinogen Urine 0.2 mg/dL (<2.0)
[2022-04-10 16:04] LABS: Bacteria Urine 2+ /hpf; Hyaline Casts Urine 50+ /lpf; Mucus Urine Moderate /lpf; RBC Urine 21-50 /hpf (0-2); Squamous Epithelial Cell Urine Few /hpf (Few); WBC Urine >75 /hpf
[2022-04-10 16:10] LABS: Color Urine Light Yellow (Yellow)
== END 2022-04-10 15:36 | disposition home or self-care (01) ==
PROVIDERS: PCP Internal Medicine; Visit Provider Internal Medicine
DX: R30.0 Dysuria (principal)
CPT/HCPCS: 81001; 87086; 87088

== ENCOUNTER 2022-09-03 15:25 | Outpatient (CLI) | payer MEDICARE, SELFPAY ==
[2022-09-03 16:26] LABS: Appearance Urine Clear (Clear); Bilirubin Urine 1+ (Negative); Blood Urine Negative (Negative); Color Urine Orange (Yellow); Glucose Urine UA Trace mg/dL (Negative); Ketones Urine 1+ mg/dL (Negative); Leukocyte Esterase Ur 3+ LEU/UL (Negative); Nitrate Urine Positive (Negative); Protein Urine 2+ mg/dL (Negative)
[2022-09-03 16:31] LABS: Bacteria Urine 4+ /hpf; Non Pathogenic Casts 0-2; Squamous Epithelial Cell Urine Few /hpf (Few); WBC Urine 21-50 /hpf
[2022-09-03 16:35] LABS: Add Urine Microscopic? YES
== END 2022-09-03 15:26 | disposition home or self-care (01) ==
PROVIDERS: PCP Internal Medicine; Visit Provider Internal Medicine
DX: R30.0 Dysuria (principal)
CPT/HCPCS: 81001; 87077; 87086; 87186

== ENCOUNTER 2023-02-26 11:01 | Outpatient (CLI) | payer MEDICARE, SELFPAY ==
[2023-02-26 11:18] LABS: Basophils Percent Auto 0.8 % (0.2-1.2); Eosinophils Absolute Auto 0.1 K/mm3 (0-0.3); Eosinophils Percent Auto 2.1 % (0-4.4); Hematocrit 41.4 % (37.0-47.0); Hemoglobin 14.1 g/dL (12.0-15.0); Immature Granulocyte Absolute 0.02 K/mm3 (0.00-0.031); Immature Granulocyte Percent A 0.4 % (0-0.5); Lymphocytes Absolute Auto 1.58 K/mm3 (0.9-3.2); Lymphocytes Percent Auto 33.1 % (18.3-44.2); Mean Corpuscular HGB Conc 34.1 g/dl (32-36); Mean Corpuscular Hemoglobin 30.5 pg (26-34); Mean Corpuscular Volume 89.6 fl (80-100); Monocytes Absolute Auto 0.4 K/mm3 (0.1-0.6); Monocytes Percent Auto 9.2 % (2.6-8.5); Neutrophils Absolute Auto 2.6 K/mm3 (1.3-6.7); Neutrophils Percent Auto 54.4 % (45.5-73.1); Platelet Count Result 205 k/mm3 (150-375); Red Blood Count 4.62 M/mm3 (4.2-5.4); Red Cell Distribution Width 13.1 % (11.5-14.5); White Blood Count 4.8 K/mm3 (4.5-10.0)
[2023-02-26 12:47] LABS: Iron 130 ug/dL (37-170)
[2023-02-26 12:57] LABS: Percent Iron Saturation 44 % (20-50)
[2023-02-26 13:04] LABS: Alanine Aminotransferase 24 U/L (6-35); Albumin Level 4.3 g/dL (3.5-5.1); Alkaline Phosphatase 61 U/L (38-126); Anion Gap 7 mmol/L (8-16); Aspartate Amino Transferase 28 U/L (14-36); Bilirubin,Total 0.7 mg/dL (0.2-1.3); Blood Urea Nitrogen 15 mg/dL (7-17); Calcium 9.4 mg/dL (8.4-10.2); Carbon Dioxide 25 mmol/L (22-30); Chloride 106 mmol/L (98-107); Estimated Glomerular Filt Rate > 60; Glucose 116 mg/dL (65-110); Potassium 4.4 mmol/L (3.4-5.0); Sodium 138 mmol/L (137-145)
[2023-02-26 13:55] LABS: Folic Acid > 20.0 ng/mL (2.76->20)
[2023-03-01 09:53] LABS: Methylmalonic Acid 248 nmol/L (87-318)
== END 2023-02-26 11:02 | disposition home or self-care (01) ==
LOC: ANHLAB 11:03
PROVIDERS: PCP Internal Medicine; Visit Provider Internal Medicine Hematology & Oncology
DX: D50.8 Other iron deficiency anemias (principal)
CPT/HCPCS: 36415; 80053; 82607; 82728; 82746; 83540; 83550; 83921; 85025

== ENCOUNTER 2025-01-27 14:50 | Emergency (ER) | payer MEDICARE, SELFPAY ==
--- NOTE | ~2025-01-27 | XR_ITS ---
XR nasal bones min 3V Indication: fall today, struck nose Comparison: None Technique: 3 view. Findings: Bilateral displaced nasal bone fractures No significant degenerative changes. Soft tissues are unremarkable. Impression: Fractures detailed above Reviewed, dictated and finalized at location P. Impression: Fractures detailed above
--- NOTE | 2025-01-27 15:24 | ED_ITS ---
HPI - Fall General Chief Complaint: Fall Stated Complaint: fall Time Seen by Provider: 01/27/25 15:10 Source: patient and RN notes reviewed Mode of arrival: ambulatory Limitations: no limitations History of Present Illness HPI Narrative: 69 year old patient presents today after a trip and fall injury over a speed bump at [facility] today approx 2 hours prior to arrival. Denies LOC. She struck her nose on the ground and to a lesser degree her forehead. She had bilateral epistaxis, but this has since resolved. Denies any additional symptoms to include headache, neck pain, dizziness or lightheadedness, vision changes or photophobia, injuries to the mouth, teeth, tongue. Related Data Home Medications ?Medication ?Instructions ?Recorded ?Confirmed ?Last Taken ?Type aspirin 81 mg tablet,delayed 81 mg PO DAILY 10/02/19 0 10/26/24 02/10/22 History release (Adult Aspirin Regimen) acetaminophen 500 mg capsule 500 mg PO Q6H PRN Pain 10/26/24 Unknown History Allergies Allergy/AdvReac Type Severity Reaction Status Date / Time diclofenac Allergy Severe Anaphylactic Verified 01/27/25 15:09 Shock [facility] Past Medical History Medical History URI, acute Rash Pure hypercholesterolemia Other fatigue Dysuria Dietary counseling and surveillance (02/20/16) Chronic back pain Depression Surgical History Surgical History History of shoulder surgery History of bunionectomy H/O section Family History Family History Mother Cerebrovascular accident Family history of diabetes mellitus in first degree relative, Onset Age: 79 Sibling Family history of diabetes mellitus in first degree relative Family history of renal failure Patient's brother is Patient's sister is in good health Father Acute myocardial infarction, Onset Age: 62 Social History Social History Smoking status: Never smoker Second hand tobacco smoke exposure: No Alcohol intake: current Drinks per week: 1 Substance use: never Substance use type: does not use Do You Feel Safe in your Home?: Yes Lack of Transportation: No Lack of Food: Never True Current Housing: I Have Housing Concerned About Future Housing: No Difficulty Paying Gas/Electric Bills: No Difficulty Paying for Meds: No Currently Unemployed: No Education: Trade/Vocational Certificate Difficulty w/ Childcare or Family Care: No Living arrangements: with family Occupation/Education: occupation Additional occupation/education comments: [employer] Gender identity (if verbalized by the patient): Female Spiritual care concerns: No Comments At time of signature, I have reviewed and agree with nursing past medical, surgical, social and family history unless otherwise noted. Please see nursing chart for further information. There is no relevant family history pertinent to the presenting complaint Exam Narrative: GENERAL: Well-appearing, well-nourished, and in no acute distress. HEAD: Normocephalic. Quarter sized bruise to the right forehead without crepitus. EYES: EOMI. PERRL. No redness or drainage. Conjunctivae normal. No orbital tenderness. ENT: Mucous membranes pink and moist. Bilateral nares with residual crusted blood, but bilateral patency. No septal hematoma present. Nose is nontender. Nose is mild to moderately swollen and bruised with abrasion to the bridge. Throat normal. Teeth normal. Tongue normal. Lips normal. NECK: Normal AROM without pain. Neck is nontender. CHEST: No respiratory distress. EXTREMITIES: Normal range of motion. No edema. SKIN: Warm, dry, no rash. Capillary refill normal. Normal skin turgor. NEURO: No focal deficits. Alert and oriented x3. Gait steady. PSYCH: Normal affect. No signs of depression or anxiety. Course Course Level of Care: Express Care Visit Vital Signs Vital signs: Vital Signs Temperature 98.5 F 01/27/25 15:33 Pulse Rate 65 01/27/25 15:33 Respiratory Rate 16 01/27/25 15:33 Blood Pressure 152/57 H 01/27/25 15:33 Pulse Oximetry 100 01/27/25 15:33 Oxygen Delivery Room Air 01/27/25 15:33 Temperature 98.5 F 01/27/25 15:33 Pulse Rate 65 01/27/25 15:33 Respiratory Rate 16 01/27/25 15:33 Blood Pressure 152/57 H 01/27/25 15:33 Pulse Oximetry 100 01/27/25 15:33 Oxygen Delivery Room Air 01/27/25 15:33 Reviewed MDM - Fall MDM Narrative Medical decision making narrative: 69 year old patient presents today after a trip and fall injury over a speed bump at [facility] today approx 2 hours prior to arrival. Denies LOC. She struck her nose on the ground and to a lesser degree her forehead. She had bilateral epistaxis, but this has since resolved. Denies any additional symptoms. No treatment prior to arrival. Tetanus shot is updated. Upon exam swollen and abraded nasal bridge without tenderness with some residual crusted blood in both nares. Quarter-sized bruising to the right forehead. X-ray shows bilateral displaced nasal bone fractures. Patient will be started on Augmentin to prevent infection in the sinuses. Abrasions to the nose have been cleaned and dressed. Patient has no additional symtoms that would indicate transfer for further evaluation at this time. VSS. Strict ED precautions given. Recommend ENT follow up on nasal bone fractures. Patient agrees with plan. Differential Diagnosis Differential diagnosis: Likely other (Contusion, nasal bone fracture, orbital fracture) Imaging Data Radiologist's impression: ITS Impressions Nasal Bones X-Ray 01/27/25 15:40 Impression: Fractures detailed above Findings: Bilateral displaced nasal bone fractures No significant degenerative changes. Soft tissues are unremarkable. Critical Care Time Critical Care Time Critical Care Time: No Discharge Plan Discharge Clinical Impression: Closed fracture nasal bone Qualifiers: Encounter type: initial encounter Qualified Code(s): S02.2XXA - Fracture of nasal bones, initial encounter for closed fracture Contusion of forehead Qualifiers: Encounter type: initial encounter Qualified Code(s): S00.83XA - Contusion of other part of head, initial encounter Fall from slip, trip, or stumble Qualifiers: Encounter type: initial encounter Qualified Code(s): W01.0XXA - Fall on same level from slipping, tripping and stumbling without subsequent striking against object, initial encounter Patient Disposition: Home Condition: Stable Instructions: Nasal Fracture (ED) Additional Instructions: Your x-ray shows fracture of your nose. Please take the Augmentin as prescribed until gone. Do not blow your nose at least for the next couple of days as this could dislodge the clot leading to additional nose bleed. Elevating your head on a pillow can help with swelling and pain. The bruising on your face and forehead will resolve with time. Take Tylenol for pain if needed. Apply ice to your nose to help with swelling. As discussed, if you develop any additional symptoms to include headache, dizziness or lightheadedness, vision changes, vomiting, or neck pain, please go to the ER immediately for further evaluation and treatment. Call and schedule a follow-up visit with the ENT for further evaluation of your nose. Your blood pressure was elevated above 120/80 today at Urgent Care. This puts you above the threshold for follow up. Please schedule a followup visit with your personal physician as soon as possible, for further evaluation and treatment. Even blood pressure exceeding 120/80 may indicate pre-hypertension. Patient Language: [place] Prescriptions: New amoxicillin-pot clavulanate 875-125 mg tablet 1 tablet PO Q12H 5 Days Qty: 10 0RF No Action acetaminophen 500 mg Capsule 500 mg PO Q6H PRN (Reason: Pain) aspirin [Adult Aspirin Regimen] 81 mg tablet,delayed release (DR/EC) 81 mg PO DAILY atorvastatin 20 mg tablet 20 mg PO DAILY Qty: 90 2RF sertraline 100 mg tablet 100 mg PO DAILY Qty: 90 3RF losartan 100 mg tablet 100 mg PO DAILY Qty: 90 3RF carvedilol 6.25 mg tablet 6.25 mg PO Q12H Qty: 180 3RF Rx Instructions: must administer with a meal/food pantoprazole 40 mg tablet,delayed release (DR/EC) 40 mg PO QAM Qty: 90 3RF hydrocodone-acetaminophen 5-325 mg tablet 1 tablet PO BID PRN (Reason: pain) Qty: 40 0RF Follow-up/Referrals: Travis Santiago MD [Physician, Ear, Nose, Throat] Jones Pedersen DO [Primary Care Provider, Internal Medicine] Time of Disposition: 16:11
[2025-01-27] MEDS: TETANUS,DIPHTHERIA,AC PERTUSSIS ADULT (0.5 ML) BOOSTRIX IM (15:32)
[2025-01-27 15:33] VITALS: BP 152/57; PULSE 65; RESP 16; TEMP 36.9; O2SAT 100
== END 2025-01-27 16:15 | disposition home or self-care (01) ==
PROVIDERS: Emergency Provider Nurse Practitioner; PCP Internal Medicine
DX: S02.2XXA Fracture of nasal bones, initial encounter for closed fracture (principal); S00.83XA Contusion of other part of head, initial encounter; W18.09XA Striking against other object with subsequent fall, initial encounter; Z23 Encounter for immunization; E78.00 Pure hypercholesterolemia, unspecified; F32.A Depression, unspecified; Z79.82 Long term (current) use of aspirin
CPT/HCPCS: 70160; 90471; 90715; 99213; G0463